=== PATIENT | female | born 1980 | race Caucasian/White ===

== ENCOUNTER 2017-04-14 23:25 | Emergency (ER) | payer BC, MEDICAID ==
[2017-04-14] MEDS ORDERED: Aspirin 81 MG Tab.Chew PO ONE (23:50)
--- NOTE | 2017-04-14 23:56 | EDM.PDOC ---
ED HPI GENERAL MEDICAL PROBLEM - General Chief Complaint: Chest Pain Stated Complaint: CHEST HURTS [id number] Time Seen by Provider: 04/14/17 23:51 Source of Information: Reports: Patient History Limitations: Reports: No Limitations - History of Present Illness INITIAL COMMENTS - FREE TEXT/NARRATIVE: This 36 yo female patient reports to the ED with a 2 week history of intermittent episodes of lightheadedness and chest pain that started at about 1830 tonight. The patient reports she has had similar symptoms in the past, went through all testing, wore a security monitor and was started on an antidepressant then felt better. The patient reports her chest pain started with mild discomfort which has continued to get a little worse, but has been intermittent. The patient reports she is normally an anxious person with increased symptoms at nighttime. Onset: Today Onset Date: 04/14/17 Onset Time: 18:30 Duration: Intermittent Location: Reports: Chest Quality: Reports: Ache, Dull Severity: Moderate Improves with: Reports: None Worsens with: Reports: None Associated Symptoms: Reports: No Other Symptoms Left Anterior Chest Pain Score (Numeric/FACES): 0 - Related Data Allergies Allergy/AdvReac Type Severity Reaction Status Date / Time sulfamethoxazole Allergy Swelling Verified 04/14/17 23:53 [From Bactrim] trimethoprim [From Bactrim] Allergy Swelling Verified 04/14/17 23:53 Home Meds: Home Meds Albuterol [Proventil Neb Soln] 2.5 mg INH ASDIRECTED 04/14/17 [History] Past Medical History HEENT History: Reports: None Cardiovascular History: Reports: None Respiratory History: Reports: Asthma Gastrointestinal History: Reports: None Genitourinary History: Reports: None 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: Musculoskeletal History: Reports: None Neurological History: Reports: None Psychiatric History: Reports: None Endocrine/Metabolic History: Reports: None Hematologic History: Reports: Anemia Immunologic History: Reports: None Oncologic (Cancer) History: Reports: None Dermatologic History: Reports: None - Infectious Disease History Infectious Disease History: Reports: None - Past Surgical History Head Surgeries/Procedures: Reports: None Social & Family History - Family History Family Medical History: Noncontributory - Tobacco Use Smoking Status *Q: Current Every Day Smoker Years of Tobacco use: 15 Packs/Tins Daily: 1 - Recreational Drug Use Recreational Drug Use: No ED ROS GENERAL - Review of Systems Review Of Systems: ROS reveals no pertinent complaints other than HPI. ED EXAM, GENERAL - Physical Exam Exam: See Below Exam Limited By: No Limitations General Appearance: Alert, WD/WN, Moderate Distress Eye Exam: Bilateral Eye: EOMI, Normal Inspection, PERRL Ears: Normal External Exam, Normal Canal, Hearing Grossly Normal, Normal TMs Nose: Normal Inspection, Normal Mucosa, No Blood Throat/Mouth: Normal Inspection, Normal Lips, Normal Teeth, Normal Gums, Normal Oropharynx, Normal Voice, No Airway Compromise Head: Atraumatic, Normocephalic Neck: Normal Inspection, Supple, Non-Tender, Full Range of Motion Respiratory/Chest: No Respiratory Distress, Lungs Clear, Normal Breath Sounds, No Accessory Muscle Use, Chest Non-Tender Cardiovascular: Normal Peripheral Pulses, Regular Rate, Rhythm, No Edema, No Gallop, No JVD, No Murmur, No Rub GI/Abdominal: Normal Bowel Sounds, Soft, Non-Tender, No Organomegaly, No Distention, No Abnormal Bruit, No Mass (Female) Exam: Deferred Rectal (Female) Exam: Deferred Back Exam: Normal Inspection, Full Range of Motion, NT Extremities: Normal Inspection, Normal Range of Motion, Non-Tender, Normal Capillary Refill, No Pedal Edema Neurological: Alert, Oriented, CN II-XII Intact, Normal Cognition, Normal Gait, Normal Reflexes, No Motor/Sensory Deficits Psychiatric: Normal Affect, Normal Mood Skin Exam: Warm, Dry, Intact, Normal Color, No Rash Lymphatic: No Adenopathy EKG INTERPRETATION EKG Date: 04/14/17 Time: 23:32 Rhythm: NSR [place]: Normal P-Wave: Present QRS: Normal ST-T: Normal QT: Normal Comparison: NA - No Prior EKG Course - Vital Signs Last Recorded V/S: Last Vital Signs Temp 36.1 C 04/15/17 01:31 Pulse 80 04/15/17 01:31 Resp 18 04/15/17 01:31 BP 113/67 04/15/17 01:31 Pulse Ox 99 04/15/17 01:31 - Orders/Labs/Meds Orders: Active Orders 24 hr Category Date Time Status EKG Documentation Completion [RC] URGENT Care 04/14/17 23:43 Active Sodium Chloride 0.9% [Normal Saline] 500 ml Med 04/15/17 00:45 Active IV ASDIRECTED Medication Orders Sodium Chloride (Normal Saline) 500 mls @ 400 mls/hr IV ASDIRECTED LILIAN Last Admin: 04/15/17 00:21 Dose: 400 mls/hr Labs: Laboratory Tests 04/14/17 04/14/17 Range/Units 23:45 23:45 WBC 12.6 H (5.0-10.0) 10^3/uL RBC 4.39 (4.2-5.4) 10^6/uL Hgb 13.6 D (12.0-16.0) g/dL Hct 39.5 (37.0-47.0) % MCV 90.0 (80-100) fL MCH 31.0 (27.0-34.0) pg MCHC 34.4 (33.0-35.0) g/dL Plt Count 354 D (150-450) 10^3/uL Neut % (Auto) 76.4 H (42.2-75.2) % Lymph % (Auto) 17.7 L (20.5-50.1) % [place] % (Auto) 5.0 (2-8) % Eos % (Auto) 0.7 L (1.0-3.0) % Baso % (Auto) 0.2 (0.0-1.0) % Sodium 136 (135-145) mmol/L Potassium 3.2 L (3.6-5.0) mmol/L Chloride 100 L (101-111) mmol/L Carbon Dioxide 24.0 (21.0-31.0) mmol/L Anion Gap 15.2 BUN 10 (7-18) mg/dL Creatinine 0.7 (0.6-1.3) mg/dL Est Cr Clr Drug Dosing 87.87 mL/min Estimated GFR (MDRD) > 60 BUN/Creatinine Ratio 14.28 Glucose 99 (74-105) mg/dL Calcium 9.1 (8.4-10.2) mg/dl Total Bilirubin 0.6 (0.2-1.0) mg/dL AST 19 (10-42) IU/L ALT 13 (10-60) IU/L Alkaline Phosphatase 61 (42-121) IU/L Troponin I < 0.02 (0.00-0.02) ng/ml Total Protein 7.5 (6.7-8.2) g/dl Albumin 4.4 (3.2-5.5) g/dl Globulin 3.1 Albumin/Globulin Ratio 1.42 Meds: Medications Generic Name Dose Route Start Last Admin Trade Name Lala PRN Reason Stop Dose Admin Sodium Chloride 500 mls @ 400 mls/hr 04/15/17 00:45 04/15/17 00:21 Normal Saline IV 400 mls/hr ASDIRECTED LILIAN Administration Discontinued Medications Generic Name Dose Route Start Last Admin Trade Name Lala PRN Reason Stop Dose Admin Aspirin 324 mg 04/14/17 23:50 04/14/17 23:58 Aspirin PO 04/14/17 23:51 324 mg ONETIME ONE Administration Potassium Chloride 10 meq/ 100 mls @ 100 mls/hr 04/15/17 00:16 04/15/17 00:24 Premix IV 04/15/17 01:15 100 mls/hr ONETIME ONE Administration Potassium Chloride 20 meq 04/15/17 00:22 04/15/17 00:25 Klor-Con 10 PO 04/15/17 00:23 20 meq ONETIME ONE Administration Departure - Departure Time of Disposition: 01:34 Disposition: Home, Self-Care 01 Condition: Fair Clinical Impression: Hypokalemia, Anxiety, Non-cardiac chest pain Instructions: Nonspecific Chest Pain, [id number], Hypokalemia, Panic Attacks , [id number] Forms: ED Department Discharge Care Plan Goals: The patient was advised of the examination, EKG, x-ray and lab results during the visit. The patient was given an IV and oral dose of potassium while in the ED. The patient was encouraged to follow-up with her primary care facility this week for continued evaluation and further management. If the patient has any additional symptoms or concerns, the patient should visit her primary care facility or return to the emergency department. - My Orders Last 24 Hours: My Active Orders 04/14/17 23:43 EKG Documentation Completion [RC] URGENT 04/15/17 00:45 Sodium Chloride 0.9% [Normal Saline] 500 ml IV ASDIRECTED - Assessment/Plan Last 24 Hours: My Active Orders 04/14/17 23:43 EKG Documentation Completion [RC] URGENT 04/15/17 00:45 Sodium Chloride 0.9% [Normal Saline] 500 ml IV ASDIRECTED
[2017-04-15 00:12] LABS: ANION GAP 15.2; CHLORIDE,CL 100 mmol/L (101-111); SODIUM,NA 136 mmol/L (135-145)
[2017-04-15] MEDS ORDERED: Potassium Chloride 10 MEQ in Premix Bag 1 BAG IV ONE (00:16)
[2017-04-15] MEDS ORDERED: Potassium Chloride 10 MEQ Tab.ER PO ONE (00:22)
[2017-04-15] MEDS ORDERED: Sodium Chloride 0.9% 500 ML IV SCH (00:45)
[2017-04-15 01:33] VITALS: BP 113/67
--- NOTE | 2017-04-16 21:17 | EKG ---
04/14/2017 - SUMI COHEN - This 12-lead EKG shows a normal sinus rhythm with a ventricular rate of 87. Normal axis and intervals. No acute ST-segment or T-wave changes. [facility] /[id number]
== END 2017-04-15 01:57 | disposition home or self-care (01) ==
LOC: DL.ED 23:25
DX: R07.89 Other chest pain (principal); F41.9 Anxiety disorder, unspecified; E87.6 Hypokalemia; J45.909 Unspecified asthma, uncomplicated; F17.210 Nicotine dependence, cigarettes, uncomplicated; Z88.1 Allergy status to other antibiotic agents; Z88.2 Allergy status to sulfonamides
CPT/HCPCS: 36415; 71045; 80053; 84484; 85025; 93005; 96365; 99285; A9270; J3480; J7040